=== PATIENT | female | born 2000 | race Hispanic/Latino ===

== ENCOUNTER 2024-01-17 20:04 | Emergency (ER) | payer BC, OTHER ==
[~2024-01-17] VITALS: Ht 165.1 cm; Wt 64.9 kg
[2024-01-17 20:06] VITALS: BP 115/73; PULSE 85; RESP 18
[2024-01-17] MEDS: ACETAMINOPHEN 325 MG TAB PO ONE (20:37)
[2024-01-17 21:14] VITALS: TEMP 98.6
[2024-01-17] MEDS ORDERED: IBUP-2070 PO (22:23)
== END 2024-01-17 22:30 | disposition home or self-care (01) ==
LOC: EDH 20:04
DX: S56.312A Strain of extensor or abductor muscles, fascia and tendons of left thumb at forearm level, initial encounter (principal); S16.1XXA Strain of muscle, fascia and tendon at neck level, initial encounter; V89.2XXA Person injured in unspecified motor-vehicle accident, traffic, initial encounter; Y93.89 Activity, other specified; Y92.89 Other specified places as the place of occurrence of the external cause; Y99.8 Other external cause status
CPT/HCPCS: 72040; 73140; 81025

== ENCOUNTER 2024-07-21 17:35 | Emergency (ER) | payer BC ==
[~2024-07-21] VITALS: Ht 162.6 cm; Wt 65.8 kg
[~2024-07-21 17:35] MED LIST: IBUP-2070 PO
[2024-07-21 17:43] VITALS: BP 112/56; PULSE 78; RESP 20; TEMP 98.8; O2SAT 97
== END 2024-07-21 17:50 | disposition home or self-care (01) ==
LOC: EDH 17:35
DX: H61.23 Impacted cerumen, bilateral (principal); Z79.899 Other long term (current) drug therapy
CPT/HCPCS: 99282